=== PATIENT | female | born 1930 | race Caucasian/White ===

== ENCOUNTER 2016-08-12 07:01 | Inpatient (IN) | payer MEDICARE, OTHER ==
[~2016-08-12] VITALS: Ht 165.1 cm; Wt 96.6 kg
[~2016-08-12 07:01] MED LIST: AZOR1 TA1 PO; BENADRY1 PO; BENADRYL 50MG C50 MG OR; BENADRYL1 CRE EX; C 500 PO; CALCIUM + D600 MG OR; CHILD ASA LS81 MG PO; CLONIDINE0.1 MG OR; CORTISONE CREAM TOP; DIFLUCAN100 MG PO; FISH OIL1000 MG PO; FOLIC ACID1 MG PO; KEFLEX500 M1 PO; LANTUS100 MG/ML SC; LASIX 20 MG TAB20 MG PO; LISINOPRIL10 MG PO; LOSARTAN POT50 MG PO; MEDDOSEPAK OR; METHYLPRED4 MG PO; METOPROL TAR25 M1 PO; OATMEAL BATH; PRED FORTE1 % OP; QUETIAPINE FUMA25 MG PO; STOOL SOFTEN1 TAB PO; ZYRTEC10 MG PO
[2016-08-12] MEDS ORDERED: QUETIAPINE FUMA25 MG PO ×2 (07:38→07:40)
[2016-08-12] MEDS ORDERED: LANTUS100 UNIT/M SC (07:39)
[2016-08-12 07:54] LABS: HEMATOCRIT 38.4 % (37.0-47.0); HEMOGLOBIN 12.6 g/dl (12.0-16.0); IMMATURE GRANULOCYTES 1.2 % (0.0-1.0); MEAN CELL VOLUME 93.4 fL CALC (80.0-100.0); MEAN CORPUSCULAR HGB 30.7 pG CALC (26.0-32.0); MEAN CORPUSCULAR HGB CONC 32.8 g/L CALC (32.0-36.0); NEUT# 6.88 thou/uL (2.00-7.15); RED BLOOD COUNT 4.11 mill/uL (4.20-5.60); RED CELL DISTRI WIDTH 13.9 % (11.5-15.5)
[2016-08-12 08:23] LABS: BILIRUBIN, TOTAL 0.5 mg/dL (0.0-1.4); CALCIUM 9.3 mg/dL (8.4-10.2); CREATININE 1.1 mg/dL (0.5-1.0); POTASSIUM 4.9 mmol/l (3.5-5.1); TOTAL PROTEIN 7.6 g/dL (6.3-8.2)
[2016-08-12 09:56] LABS: URINE BILIRUBIN - DIPSTICK NEGATIVE (NEGATIVE); URINE BLOOD DIPSTICK NEGATIVE (NEGATIVE); URINE COLOR YELLOW; URINE GLUCOSE - DIPSTICK NEGATIVE (NEGATIVE); URINE KETONE NEGATIVE (NEGATIVE); URINE LEUK ESTERASE NEGATIVE (NEGATIVE); URINE NITRITE - DIPSTICK POSITIVE (Negative); URINE PROTEIN - DIPSTICK NEGATIVE (NEG-TRACE); URINE SPECIFIC GRAVITY 1.025; URINE UROBILINOGEN - DIPSTICK 0.2 E.U./dL (0.2)
[2016-08-12 09:57] LABS: URINE BACTERIA MODERATE hpf; URINE CLARITY SLIGHT CLOUDY; URINE EPITHELIAL CELLS FEW EPI/hpf (0-FEW)
[2016-08-12 11:19] VITALS: BP 142/59
[2016-08-12 15:22] VITALS: BP 131/46
[2016-08-12 19:25] VITALS: BP 120/50
[2016-08-12 23:25] VITALS: BP 119/50
[2016-08-13 04:30] VITALS: BP 122/66
[2016-08-13 06:03] LABS: HEMATOCRIT 35.7 % (37.0-47.0); HEMOGLOBIN 11.7 g/dl (12.0-16.0); IMMATURE GRANULOCYTES 0.6 % (0.0-1.0); MEAN CELL VOLUME 94.4 fL CALC (80.0-100.0); MEAN CORPUSCULAR HGB CONC 32.8 g/L CALC (32.0-36.0); NEUT# 4.23 thou/uL (2.00-7.15); RED BLOOD COUNT 3.78 mill/uL (4.20-5.60); RED CELL DISTRI WIDTH 13.9 % (11.5-15.5)
[2016-08-13 06:25] LABS: CALCIUM 8.9 mg/dL (8.4-10.2); CREATININE 1.1 mg/dL (0.5-1.0); POTASSIUM 4.1 mmol/l (3.5-5.1)
[2016-08-13 09:15] VITALS: BP 150/64
[2016-08-13 09:17] VITALS: BP 150/64
[2016-08-13] MEDS ORDERED: KEFLEX500 MG PO (14:44)
== END 2016-08-13 16:37 | disposition home health service (06) | DRG 71 ==
LOC: ENPENDDIS → ED 07:01 → ED-I 10:07 → ED 10:08 → MS2 10:09
PROVIDERS: Emergency Medicine; ADMIT Internal Medicine; ATTEND Internal Medicine
DX: G93.40 Encephalopathy, unspecified (principal); N39.0 Urinary tract infection, site not specified; E87.2 Acidosis; E11.22 Type 2 diabetes mellitus with diabetic chronic kidney disease; F03.90 Unspecified dementia, unspecified severity, without behavioral disturbance, psychotic disturbance, mood disturbance, and anxiety; I12.9 Hypertensive chronic kidney disease with stage 1 through stage 4 chronic kidney disease, or unspecified chronic kidney disease; N18.3 Chronic kidney disease, stage 3 (moderate); B19.20 Unspecified viral hepatitis C without hepatic coma; I25.10 Atherosclerotic heart disease of native coronary artery without angina pectoris; E78.5 Hyperlipidemia, unspecified; Z79.4 Long term (current) use of insulin; Z95.1 Presence of aortocoronary bypass graft; Z86.73 Personal history of transient ischemic attack (TIA), and cerebral infarction without residual deficits; Z85.038 Personal history of other malignant neoplasm of large intestine; Z95.0 Presence of cardiac pacemaker

== ENCOUNTER 2016-10-18 13:59 | Emergency (ER) | payer MEDICARE, OTHER ==
[~2016-10-18] VITALS: Ht 165.1 cm; Wt 81.8 kg
[~2016-10-18 13:59] MED LIST changes: +KEFLEX500 MG PO; +LANTUS100 UNIT/M SC
[2016-10-18 14:29] LABS: HEMATOCRIT 40.5 % (37.0-47.0); HEMOGLOBIN 13.2 g/dl (12.0-16.0); IMMATURE GRANULOCYTES 0.4 % (0.0-1.0); MEAN CELL VOLUME 94.6 fL CALC (80.0-100.0); MEAN CORPUSCULAR HGB 30.8 pG CALC (26.0-32.0); MEAN CORPUSCULAR HGB CONC 32.6 g/L CALC (32.0-36.0); NEUT# 5.19 thou/uL (2.00-7.15); RED BLOOD COUNT 4.28 mill/uL (4.20-5.60); RED CELL DISTRI WIDTH 13.8 % (11.5-15.5)
[2016-10-18 14:41] LABS: ALBUMIN 4.2 g/dL (3.2-5.0); BILIRUBIN, TOTAL 0.4 mg/dL (0.0-1.4); CALCIUM 9.2 mg/dL (8.4-10.2); CREATININE 1.4 mg/dL (0.5-1.0); POTASSIUM 4.9 mmol/l (3.5-5.1); TOTAL PROTEIN 7.5 g/dL (6.3-8.2)
[2016-10-18 14:51] LABS: PROTHROMBIN TIME 10.7 SECONDS (9.0-12.5)
[2016-10-18 16:50] LABS: URINE BILIRUBIN - DIPSTICK NEGATIVE (NEGATIVE); URINE BLOOD DIPSTICK NEGATIVE (NEGATIVE); URINE CLARITY CLEAR; URINE COLOR YELLOW; URINE GLUCOSE - DIPSTICK NEGATIVE (NEGATIVE); URINE KETONE NEGATIVE (NEGATIVE); URINE LEUK ESTERASE NEGATIVE (NEGATIVE); URINE NITRITE - DIPSTICK NEGATIVE (Negative); URINE PROTEIN - DIPSTICK NEGATIVE (NEG-TRACE); URINE SPECIFIC GRAVITY <=1.005; URINE UROBILINOGEN - DIPSTICK 0.2 E.U./dL (0.2)
[2016-10-18 17:03] VITALS: BP 154/70
== END 2016-10-18 17:04 | disposition short-term general hospital (02) ==
LOC: ED 13:59
PROVIDERS: Emergency Medicine
DX: H54.41 Blindness, right eye, normal vision left eye (principal); I10 Essential (primary) hypertension; E11.9 Type 2 diabetes mellitus without complications; R94.31 Abnormal electrocardiogram [ECG] [EKG]; Z95.1 Presence of aortocoronary bypass graft; Z86.73 Personal history of transient ischemic attack (TIA), and cerebral infarction without residual deficits; Z85.038 Personal history of other malignant neoplasm of large intestine; Z95.0 Presence of cardiac pacemaker

== ENCOUNTER 2017-06-20 13:25 | Inpatient (IN) | payer MEDICARE, OTHER ==
[~2017-06-20] VITALS: Ht 165.1 cm; Wt 68.1 kg
[2017-06-20 15:19] LABS: INFLUENZA A POSITIVE (NONE DETECT); INFLUENZA B NONE DETECTED (NONE DETECT)
[2017-06-20 15:21] LABS: HEMATOCRIT 40.8 % (37.0-47.0); HEMOGLOBIN 13.5 g/dl (12.0-16.0); IMMATURE GRANULOCYTES 0.5 % (0.0-1.0); MEAN CELL VOLUME 93.8 fL CALC (80.0-100.0); MEAN CORPUSCULAR HGB CONC 33.1 g/L CALC (32.0-36.0); NEUT# 9.1 thou/uL (2.00-7.15); RED BLOOD COUNT 4.35 mill/uL (4.20-5.60); RED CELL DISTRI WIDTH 13.9 % (11.5-15.5)
[2017-06-20 15:26] LABS: BILIRUBIN, TOTAL 0.6 mg/dL (0.0-1.4); CREATININE 1.3 mg/dL (0.5-1.0)
[2017-06-20] MEDS ORDERED: LEVEMIR FL100 UNIT/M SC (15:27)
[2017-06-20 15:37] LABS: POTASSIUM 5.3 mmol/l (3.5-5.1)
[2017-06-20 18:30] VITALS: BP 119/65
[2017-06-21] VITALS (7 sets, daily range): BP systolic 110–152; BP diastolic 54–76
[2017-06-22 00:13] VITALS: BP 110/51
[2017-06-22 04:29] VITALS: BP 117/55
[2017-06-22 05:45] LABS: CREATININE 1.2 mg/dL (0.5-1.0)
[2017-06-22 06:09] LABS: IMMATURE GRANULOCYTES 0.5 % (0.0-1.0); MEAN CELL VOLUME 93.6 fL CALC (80.0-100.0); MEAN CORPUSCULAR HGB 31.6 pG CALC (26.0-32.0); MEAN CORPUSCULAR HGB CONC 33.7 g/L CALC (32.0-36.0); NEUT# 12.5 thou/uL (2.00-7.15); RED BLOOD COUNT 3.61 mill/uL (4.20-5.60); RED CELL DISTRI WIDTH 13.6 % (11.5-15.5)
[2017-06-22 06:11] LABS: HEMATOCRIT 33.8 % (37.0-47.0); HEMOGLOBIN 11.4 g/dl (12.0-16.0)
[2017-06-22 07:45] VITALS: BP 111/49
[2017-06-22 11:44] VITALS: BP 126/51
[2017-06-22 14:34] VITALS: BP 133/70
[2017-06-22 19:28] VITALS: BP 110/57
[2017-06-22 21:06] LABS: URINE BILIRUBIN - DIPSTICK NEGATIVE (NEGATIVE); URINE BLOOD DIPSTICK NEGATIVE (NEGATIVE); URINE COLOR YELLOW; URINE GLUCOSE - DIPSTICK >=1000 mg/dL (NEGATIVE); URINE KETONE NEGATIVE (NEGATIVE); URINE LEUK ESTERASE NEGATIVE (NEGATIVE); URINE NITRITE - DIPSTICK NEGATIVE (Negative); URINE PROTEIN - DIPSTICK NEGATIVE (NEG-TRACE); URINE SPECIFIC GRAVITY 1.015; URINE UROBILINOGEN - DIPSTICK 0.2 E.U./dL (0.2)
[2017-06-22 21:07] LABS: URINE CLARITY CLEAR
[2017-06-23 00:41] VITALS: BP 116/65
[2017-06-23 05:24] LABS: HEMATOCRIT 35.1 % (37.0-47.0); HEMOGLOBIN 11.6 g/dl (12.0-16.0); MEAN CELL VOLUME 93.1 fL CALC (80.0-100.0); MEAN CORPUSCULAR HGB 30.8 pG CALC (26.0-32.0); RED BLOOD COUNT 3.77 mill/uL (4.20-5.60); RED CELL DISTRI WIDTH 13.8 % (11.5-15.5)
[2017-06-23 05:31] VITALS: BP 158/74
[2017-06-23 05:58] LABS: ANION GAP 16 (6-22 (CALC)); BUN 36 mg/dL (8-23); BUN/CREATININE RATIO 37 (12-20 (CALC)); CARBON DIOXIDE 20 mmol/l (22-30); CHLORIDE 103 mmol/l (95-108); GFR 52 ML/MIN (>=60 (CALC)); GFR FOR AFR.AMER. > 60 ML/MIN (>=60 (CALC)); POTASSIUM 4.6 mmol/l (3.5-5.1); SODIUM 135 mmol/l (137-146)
[2017-06-23 07:55] VITALS: BP 155/68
[2017-06-23 11:00] VITALS: BP 115/55
[2017-06-23 15:30] VITALS: BP 121/52
[2017-06-23 19:00] VITALS: BP 140/60
[2017-06-24 00:38] VITALS: BP 143/65
[2017-06-24 04:45] VITALS: BP 163/73
[2017-06-24 05:33] LABS: HEMATOCRIT 35.7 % (37.0-47.0); HEMOGLOBIN 11.9 g/dl (12.0-16.0); MEAN CELL VOLUME 93.5 fL CALC (80.0-100.0); MEAN CORPUSCULAR HGB 31.2 pG CALC (26.0-32.0); MEAN CORPUSCULAR HGB CONC 33.3 g/L CALC (32.0-36.0); RED BLOOD COUNT 3.82 mill/uL (4.20-5.60); RED CELL DISTRI WIDTH 13.8 % (11.5-15.5)
[2017-06-24 05:43] LABS: CREATININE 1.1 mg/dL (0.5-1.0); MAGNESIUM 2.2 mg/dL (1.6-2.3); POTASSIUM 4.7 mmol/l (3.5-5.1)
[2017-06-24 07:45] VITALS: BP 151/62
[2017-06-24 09:02] VITALS: BP 151/62
[2017-06-24] MEDS ORDERED: ZITHROMAX250 MG PO (12:41)
[2017-06-24] MEDS ORDERED: VANTIN200 M1 PO (12:41)
[2017-06-24] MEDS ORDERED: GUAIFENESI100 MG/51 PO (12:41)
[2017-06-24] MEDS ORDERED: ELIQUIS2.5 MG PO (12:41)
[2017-06-24] MEDS ORDERED: TAMIFLU30 MG PO (12:41)
== END 2017-06-24 13:39 | DRG 194 ==
LOC: ED 13:25 → ED-I 17:20 → ED 17:51 → MS2 17:52
PROVIDERS: Family Medicine; Nurse Practitioner Family; ADMIT Internal Medicine; ATTEND Internal Medicine
DX: J10.00 Influenza due to other identified influenza virus with unspecified type of pneumonia (principal); N17.9 Acute kidney failure, unspecified; I47.2 Ventricular tachycardia; E11.22 Type 2 diabetes mellitus with diabetic chronic kidney disease; E87.5 Hyperkalemia; I48.0 Paroxysmal atrial fibrillation; N18.3 Chronic kidney disease, stage 3 (moderate); I13.10 Hypertensive heart and chronic kidney disease without heart failure, with stage 1 through stage 4 chronic kidney disease, or unspecified chronic kidney disease; E78.5 Hyperlipidemia, unspecified; I25.10 Atherosclerotic heart disease of native coronary artery without angina pectoris; B19.20 Unspecified viral hepatitis C without hepatic coma; F03.90 Unspecified dementia, unspecified severity, without behavioral disturbance, psychotic disturbance, mood disturbance, and anxiety; Z86.73 Personal history of transient ischemic attack (TIA), and cerebral infarction without residual deficits; Z95.0 Presence of cardiac pacemaker; Z85.038 Personal history of other malignant neoplasm of large intestine; Z95.1 Presence of aortocoronary bypass graft; Z92.21 Personal history of antineoplastic chemotherapy
CPT/HCPCS: G0378

== ENCOUNTER 2017-10-31 21:32 | Inpatient (IN) | payer MEDICARE ==
[~2017-10-31] VITALS: Ht 165.1 cm; Wt 67.1 kg
[~2017-10-31 21:32] MED LIST changes: +ELIQUIS2.5 MG PO; +GUAIFENESI100 MG/51 PO; +LEVEMIR FL100 UNIT/M SC; +STOOL SOFTE1 PO; -STOOL SOFTEN1 TAB PO; +TAMIFLU30 MG PO; +VANTIN200 M1 PO; +ZITHROMAX250 MG PO
--- NOTE | 2017-10-31 21:35 | NUR ---
PATIENT TO ROOM 15 VIA EMS STRETCHER. PATIENT'S EMS IV REMOVED IN TRANSFER FROM EMS STRETCHER TO ER STRETCHER. DRESSING APPLIED. TRIAGE COMPLETED AT BEDSIDE. PATIENT PLACED ON MONITOR. MD AT BEDSIDE FOR EVAL. PALPABLE PULSE TO RLE. APPEARS SHORTENED AND EXTERNALLY ROTATED, PAIN WITH SLIGHTEST PALPATION.
--- NOTE | 2017-10-31 21:50 | NUR ---
EMS STATES PT WAS FOUND ON THE GROUND OF THE ASSISTED LIVING FACILITY. PT STATES THAT SHE TRIPPED AND FELL. PT IS AOX2 TO SELF AND EVENT. FACILITY STATES PT IS MORE OUT OF IT THEN USUAL. PT HAS PAIN TO THE RIGHT HIP AND THIG AREA. PMS NOTED IN ROOT FOOT. PT DENIES ANY HEAD PAIN, C/P, SOB.
[2017-10-31 22:04] LABS: HEMATOCRIT 38.1 % (37.0-47.0); HEMOGLOBIN 12.3 g/dl (12.0-16.0); IMMATURE GRANULOCYTES 0.8 % (0.0-1.0); MEAN CORPUSCULAR HGB 28.4 pG CALC (26.0-32.0); MEAN CORPUSCULAR HGB CONC 32.3 g/L CALC (32.0-36.0); NEUT# 14.9 thou/uL (2.00-7.15); RED BLOOD COUNT 4.33 mill/uL (4.20-5.60); RED CELL DISTRI WIDTH 14.4 % (11.5-15.5)
[2017-10-31 22:21] LABS: ALBUMIN 3.3 g/dL (3.2-5.0); BILIRUBIN, TOTAL 0.6 mg/dL (0.0-1.4); CREATININE 1.4 mg/dL (0.5-1.0); POTASSIUM 4.7 mmol/l (3.5-5.1); TOTAL PROTEIN 6.6 g/dL (6.3-8.2)
[2017-10-31 22:22] LABS: ACT PARTIAL THROMBO TIME 31.7 SECONDS (20.0-32.5); INTERNATIONAL NORMALIZED RATIO 1.2 RATIO (0.7-1.3)
--- NOTE | 2017-10-31 22:31 | NUR ---
MEDICATED PT FOR R HIP PAIN.
--- NOTE | 2017-10-31 22:53 | NUR ---
XRAY AT BEDSIDE.
[2017-11-01] VITALS (10 sets, daily range): BP systolic 74–126; BP diastolic 44–83
--- NOTE | 2017-11-01 00:25 | NUR ---
PT AWARE OF R FEMUR FX. PROVIDED REORIENTAION TO PLACE.
--- NOTE | 2017-11-01 01:07 | NUR ---
PT MEDICATED FOR R HIP PAIN.
[2017-11-01 02:03] LABS: URINE BILIRUBIN - DIPSTICK NEGATIVE (NEGATIVE); URINE BLOOD DIPSTICK NEGATIVE (NEGATIVE); URINE COLOR YELLOW; URINE GLUCOSE - DIPSTICK NEGATIVE (NEGATIVE); URINE KETONE TRACE mg/dL (NEGATIVE); URINE LEUK ESTERASE NEGATIVE (NEGATIVE); URINE NITRITE - DIPSTICK NEGATIVE (Negative); URINE PH 5.5 (4.5-8.0); URINE PROTEIN - DIPSTICK TRACE mg/dL (NEG-TRACE); URINE SPECIFIC GRAVITY >=1.030
[2017-11-01 02:04] LABS: URINE CLARITY CLOUDY
[2017-11-01 02:08] LABS: URINE AMORPH SEDIMENT MODERATE hpf (NONE-FEW); URINE BACTERIA FEW hpf; URINE COARSE GRANULAR CAST FEW lpf; URINE FINE GRAN CAST FEW lpf; URINE MUCUS FEW hpf (NONE-FEW); URINE RBC 0-2 RBC/hpf (0-5); URINE SQUAMOUS EPITHELIAL CELL MODERATE EPI/hpf (0-FEW); URINE WBC 0-2 WBC/hpf (0-5)
--- NOTE | 2017-11-01 02:10 | NUR ---
PT INFORMED OF ADMISSION. PROVIDED REORIENTATION TO PLACE.
--- NOTE | 2017-11-01 02:58 | NUR ---
REPORT TO [facility]ELDMAN [facility]/SURG
--- NOTE | 2017-11-01 03:12 | NUR ---
PT COND STABLE, PEDAL PULSE TO R FOOT POSITIVE. OUTWARD ROTATION NOTED. PT TO RM 281 VIA STRETCHER WITH RN ON TELE. PT ASSISTED TO BED VIA SLIDE BOARD.
--- NOTE | 2017-11-01 03:25 | NUR ---
PT.ARRIVED TO THE FLOOR VIA STRETCHER ACCOMPANIED BY ED NURSE AND LAUNDRY ATTENDANT. PT.TRANSFERED TO BED FROM STRETCHER VIA 5 PEOPLE ASSIST. PT.APPEARS TO BE IN QUITE A BIT OF PAIN UPON TRANSFER. PT.WAS SOILED OF STOOL AND REMAINS OF A SOILED BRIEF WERE FOUND UNDER PT. MIJARES CATHETER HAD BEEN PLACED, LEG STRAP PLACED, APPEARS PATENT AND DRAINING. IV FLUIDS RUNNING THROUGH ACCESSED UPPER RSC PORT. V/S ASSESSED, HR131 BP126/83,0286 RA. PT.PLACED ON AND SATS INCREASED TO 100% ON .
--- NOTE | 2017-11-01 04:30 | NUR ---
PT.IS RESTING COMFORTABLY, AWOKE TO MY VOICE. LOC TO SELF ONLY. PT.ASSESSED,LUNG SOUNDS ARE CLEAR/DIM, SKIN IS INTACT, ABD.SOFT/NON-TENDER. IV FLUIDS ARE RUNNING NS@125/SITE APPEARS HEALTHY. LIGHTS DOWN LOW, BED IN LOWEST POSITIION AND BED ALARM ON.
--- NOTE | 2017-11-01 05:39 | NUR ---
PT.AWOKE TO MY ENTERING ROOM. SHE WAS DISORIENTED TO SITUATION,BUT WAS CALM. I TOOK HER BY THE HAND AND EXPLAINED HER SITUATION AND LOCATION, SHE SEEMED COMFORTED. SHE STATED THAT HER LEG FELT A LITTLE "CRAMPY," WHEN ASKED IF SHE WAS HAVING PAIN SHE SHOOK HER HEAD NO. DENIES ANY OTHER NEEDS AT THIS TIME. REORIENTED TO CALL LIGHT, BED ALARM ON.
--- NOTE | 2017-11-01 07:00 | NUR ---
BEDSIDE REPORT RECEIVED BY MIKEY. PT IS SLEEPING IN BED WITH NO S/S OF DISTRESS NOTED. BED ALARM IN PLACE FOR SAFETY.
--- NOTE | 2017-11-01 08:00 | NUR ---
ASSESSMENT DONE. TELE IN PLACE. LUNG SOUND CLEAR/ DIMINISHED. PT IS A&O X2 ONLY TO SELF AND DATE OF . RU PORT THAT APPEARS HEALTHY. FOELY IN PLACE WITH YELLOW URINE. BED ALARM IN PLACE.
--- NOTE | 2017-11-01 09:30 | NUR ---
Andres BLAKE CUT FILER SPOKE TO DR. COMBS AND SETUP UP OR TEAM FOR SURGERY AT 1500 TODAY.
--- NOTE | 2017-11-01 12:00 | NUR ---
PT IS SLEEPING IN BED WITH NO S/S OF DISTRESS NOTED. MIJARES IS PATENT WITH YELLOW URINE. BED ALARM IN PLACE.
--- NOTE | 2017-11-01 14:16 | NUR ---
PT SON CAME IN TO SIGN CONSENT FOR SURGERY. EXPLAINED THE CONSENT TO SON BUT HE REFUSED FOR ME TO GO IN TO MORE DETAILS. SON STATED IT WAS FINE AND SIGN PT SON REFUSED TO GO INTO PT ROOM AT THIS TIME.
--- NOTE | 2017-11-01 14:31 | NUR ---
PT GOING TO OR VIA BED BY MARIPOSA FROM OR.
--- NOTE | 2017-11-01 18:01 | NUR ---
KEVIN DARNELL CALLED FROM ICU THAT PT IS BEING TRANFER FROM OR TO ICU.
--- NOTE | 2017-11-01 18:25 | NUR ---
female pt received from OR via bed in stable condition; easily aroused to verbal stimuli; alert to person and city; denies pain; report received from OR Sasha Lakhani RN; monitoring attachments explained and applied; afib 120s on monitor; bp 74/44; fluid bolus infusing; o2 per nc; iv patent; gusman to gravity;
--- NOTE | 2017-11-01 18:40 | NUR ---
report to Ute Harley, RN
--- NOTE | 2017-11-01 19:00 | NUR ---
PT RESTING IN BED WITH EYES CLOSED. PT IS ALERT AND ORIENTED X3. PERRLA. SHIFT ASSESSMENT COMPLETED AT THIS TIME. PORT PATENET WITH IV BOLUS INFUSING. MANUAL BP OF 102/50. MIJARES DRAINING CLEAR YELLOW URINE. PT ORIENTED TO CALL LIGHT SYSTEM. PT VERBALIZED UNDERSTANDING. PT DENIES PAIN. CALL LIGHT IN REACH. WILL CONTINUE TO MONITOR
--- NOTE | 2017-11-01 19:10 | NUR ---
PHONED ARTHUR MARIE NURSING BRUSHER HAND FOR BED ASSIGNMENT. NURSING BRUSHER HAND REPORTED THAT SHE WAS NOT AWARE OF TRANSFER. WILL NOTIFY DR HANLEY
--- NOTE | 2017-11-01 19:15 | NUR ---
CALLED DR COMBS ANSWERING SERVICE [phone] TO NOTIFY THAT SURGERY WAS NOT SET UP AT [facility] AND THAT WE ARE NOT ABLE TO DO BUCKS TRACTION. AWAITING CALL BACK FROM
--- NOTE | 2017-11-01 19:20 | NUR ---
MANUAL BP 98/52
--- NOTE | 2017-11-01 20:36 | NUR ---
PHONED DR COMBS ANSWERING SERVICE [phone]. WILL CONTINUE TO AWAIT TO HEAR FROM DR COMBS.
--- NOTE | 2017-11-01 20:52 | NUR ---
MANUAL BP 85/50
--- NOTE | 2017-11-01 21:20 | NUR ---
LAYO FROM DR BOOKER OFFICE PHONED. 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 EXPLAINED THAT WE DO NOT HAVE THE BUCKS TRACTION TO APPLY SHE STATED THAT WAS OK. I QUESTIONED ABOUT TRANSFER TO [facility] AND EXPLAINED THAT SHE WAS NOT ON THE OR SCHEDULE SHE STATED THAT WOULD ALL BE TAKEN CARE OF IN THE AM.
--- NOTE | 2017-11-01 21:46 | NUR ---
MANUAL BP 90/58
--- NOTE | 2017-11-01 22:30 | NUR ---
BLADDER SCANNED 0ML
--- NOTE | 2017-11-01 22:40 | NUR ---
MESSAGE LEFT FOR DR MUÑOZ IN REFERENCE TO URINE OUTPUT.
--- NOTE | 2017-11-01 23:00 | NUR ---
PHONED DR MUÑOZ IN REFERENCE TO DECREASED URINE OUTPUT POST 3 LITER BOLUS IN PACU. ORDERS RECEIVED. WILL CONTINUE TO MONITOR
--- NOTE | 2017-11-01 23:05 | NUR ---
BOLUS OF LR INFUSING.
--- NOTE | 2017-11-01 23:54 | NUR ---
MANUAL BP 92/50
[2017-11-02] VITALS (13 sets, daily range): BP systolic 75–108; BP diastolic 45–63
--- NOTE | 2017-11-02 | NUR ---
PT RESTING IN BED WITH EYES CLOSED. RESP ARE EVEN AND UNLABORED. REMAINS AFIB ON MONITOR. CALL LIGHT IN REACH. WILL CONTINUE TO MONIOTR
--- NOTE | 2017-11-02 01:50 | NUR ---
PT RESTIGN IN BED WITH EYES CLOSED. RESP ARE EVEN AND UNLABORED. NO DISTRESS NOTED. PORT PATENT. CALL LIGHT IN REACH WILL CONTINUE TO MONITOR
--- NOTE | 2017-11-02 04:00 | NUR ---
PT AWAKE IN BED. PT STATES THAT SHE IS HAVING PAIN. BP 95/55. WILL MEDICATE WITH DILAUDID AND ZOFRAN DUE TO NPO STATUS. REMAINS AFIB ON MONITOR. PORT PATENT. CALL LIGHT IN REACH. WILL CONTINUE TO MONITOR
[2017-11-02 04:39] LABS: IMMATURE GRANULOCYTES 0.6 % (0.0-1.0); MEAN CELL VOLUME 92.5 fL CALC (80.0-100.0); MEAN CORPUSCULAR HGB 28.5 pG CALC (26.0-32.0); MEAN CORPUSCULAR HGB CONC 30.8 g/L CALC (32.0-36.0); NEUT# 8.25 thou/uL (2.00-7.15); RED BLOOD COUNT 3.19 mill/uL (4.20-5.60); RED CELL DISTRI WIDTH 14.5 % (11.5-15.5)
[2017-11-02 04:40] LABS: HEMATOCRIT 29.5 % (37.0-47.0); HEMOGLOBIN 9.1 g/dl (12.0-16.0)
[2017-11-02 04:53] LABS: ANION GAP 11 (6-22 (CALC)); BUN 24 mg/dL (8-23); BUN/CREATININE RATIO 27 (12-20 (CALC)); CARBON DIOXIDE 21 mmol/l (22-30); CHLORIDE 107 mmol/l (95-108); CREATININE 0.9 mg/dL (0.5-1.0); GFR 59 ML/MIN (>=60 (CALC)); GFR FOR AFR.AMER. > 60 ML/MIN (>=60 (CALC)); POTASSIUM 4.9 mmol/l (3.5-5.1); SODIUM 134 mmol/l (137-146)
--- NOTE | 2017-11-02 06:25 | NUR ---
PT RESTING IN BED WITH EYES CLOSED. RESP ARE EVEN AND UNLABORED. NO DISTRESS NOTED. CALL LIGHT IN REACH. WILL CONTINUE TO MONITOR
--- NOTE | 2017-11-02 07:05 | NUR ---
pt noted resting/snoring with eyes closed; no distress noted; easily arousable to verbal stimuli; assessment completed at this time; pt alert to self only; denies pain; no n/v noted at this time; resp even and unlabored; lungs clear bilat; skin color wnl; o2 per nc at 2L; coughing, deep breathing encouraged; hr reg; afib/ pvc on monitor sustained at 130s; doppler pedal pulses; trace edema noted to right ankle/foot; scd intact to lle; abd soft/distended with bs present; no bm noted per speech writer; gusman to gravity draining clear yellow urine; cath ospina intact; right chest port accessed with LR infusing at 150cc/hr; no redness or edema noted at site; ice pack applied to right hip; repositioned; manual bp 78/50, MD to be notified; NPO status maintained; call light within reach; will continue to monitor
--- NOTE | 2017-11-02 07:30 | NUR ---
Dr Graham called this mortgage or loan underwriter; report given including manaul bp of 78/50, sustained afib 130s; orders received for fluids bolus; [facility] to be called in regards to transfer with Dr Lynn accepting; will continue to monitor
--- NOTE | 2017-11-02 07:39 | NUR ---
BP 75/52, AFIB 130 ON MONITOR; FLUID BOLUS INITIATED PER ORDERS; WILL CONTINUE TO MONITOR CLOSELY
--- NOTE | 2017-11-02 07:56 | NUR ---
[facility] called per advertising copy writer; spoke with nursing supervisor cellars Otilia; information provided for transfer; facesheet to be faxed; will notify Dr Lynn to inform [facility] of pt acceptance as per Otilia's request
--- NOTE | 2017-11-02 08:06 | NUR ---
received called from Marcos with Dr Horne's office; orders received to initiate transfer to [facility] under services of Dr Lynn; surgery to be done at approx 1700; chief writer informed Marcos transfer has been initiated; will continue to monitor
--- NOTE | 2017-11-02 08:13 | NUR ---
resting in bed with closed; no distress noted; resp even and unlabored; iv patent; bolus continues; sbp 90; afib 128 on monitor; gusman to gravity; NPO maintained; scd intact to LLE; call light within reach; will continue to monitor
--- NOTE | 2017-11-02 08:30 | NUR ---
Dr Graham at bedside to assess pt and discuss plan of care
--- NOTE | 2017-11-02 08:41 | NUR ---
fluid bolus completed; no distress noted; pt easily aroused; bp 98/45 hr 128
--- NOTE | 2017-11-02 08:57 | NUR ---
received called from [facility] kiln head house operator Yoli; bed assignment received; pt assigned room 306; gag writer questioned bed type; Yoli states "tele bed"; VS and HR reviewed with nursing belt and link shop supervisor; gag writer to notified Dr Graham to update Dr Lynn on condition; will continue to monitor
--- NOTE | 2017-11-02 09:08 | NUR ---
called Dr Graham in regards to TELE bed assigned at [facility]; reviewed with MD persistent hypotension with current bp 84/53, afib 128 with possible need for pressors; Dr Graham to call Dr Lynn to discuss VS/ bed assignment; will continue to monitor
--- NOTE | 2017-11-02 09:26 | NUR ---
called received from Kaylee Baron; updated on condition and pending transfer;
--- NOTE | 2017-11-02 09:33 | NUR ---
com writer called VIJ[facility] Kent nursing powdered metal supervisor; updated in plan of care; Dr Lynn to call VIJAY with request for possible ICU bed; awaiting bed assignment
--- NOTE | 2017-11-02 09:54 | NUR ---
awake; denies pain; offers no complaints; repositioned for comfort; limited movement/repositioning due to pain with movement; afib 114 on monitor; bp improving; gusman to gravity; o2 per nc; iv patent; right leg rotated externally; ice pack to right hip; call light within reach; will continue to monitor
--- NOTE | 2017-11-02 11:10 | NUR ---
telegraphic typewriter operator called [facility] Yoli in regards to bed assignment; Yoli admits to waiting to hear from Dr Lynn for approp bed assignment
--- NOTE | 2017-11-02 11:30 | NUR ---
received call from VIJAY Kent; ICU 253 bed assignment received; report to be called at [phone];
--- NOTE | 2017-11-02 11:33 | NUR ---
[facility] transport Roman called per handbook writer; transfer information provided; ETA 20 minutes; will continue to monitor
--- NOTE | 2017-11-02 11:35 | NUR ---
[facility]A called to [facility] as per request
--- NOTE | 2017-11-02 11:38 | NUR ---
pt noted/heard moaning out loudly; in to assess pt; pt with complaints of pain to right hip; repositioned; facial grimaces noted; medicated with dilaudid as per orders; will continue to monitor
--- NOTE | 2017-11-02 12:07 | NUR ---
pt discharged with [facility] transport; pt belongings/night gown sent with pt; iv fluids infusing; o2 per nc; afib on monitor; sbp 98 on discharged
--- NOTE | 2017-11-02 12:08 | NUR ---
Kaylee Baron called as per request; informed pt has been transferred
--- NOTE | 2017-11-02 12:10 | NUR ---
report called to [facility] ICU Keke Stinson RN
== END 2017-11-02 12:07 | DRG 536 ==
LOC: ED 21:32 → ED-I 11-01 01:20 → ED 11-01 02:14 → ICU 11-01 02:15 → MS2 11-01 02:15 → ICU 11-01 17:55
PROVIDERS: Family Medicine; Nurse Practitioner; ADMIT Internal Medicine; ATTEND Internal Medicine
PROC: 0T9B70Z Drainage of Bladder with Drainage Device, Via Natural or Artificial Opening (ICD-10-PCS; principal; 2017-11-01)
DX: S72.21XA Displaced subtrochanteric fracture of right femur, initial encounter for closed fracture (principal); I12.9 Hypertensive chronic kidney disease with stage 1 through stage 4 chronic kidney disease, or unspecified chronic kidney disease; E11.22 Type 2 diabetes mellitus with diabetic chronic kidney disease; N18.3 Chronic kidney disease, stage 3 (moderate); F03.90 Unspecified dementia, unspecified severity, without behavioral disturbance, psychotic disturbance, mood disturbance, and anxiety; I25.10 Atherosclerotic heart disease of native coronary artery without angina pectoris; I48.91 Unspecified atrial fibrillation; I95.9 Hypotension, unspecified; R00.0 Tachycardia, unspecified; B19.20 Unspecified viral hepatitis C without hepatic coma; W19.XXXA Unspecified fall, initial encounter; Y93.9 Activity, unspecified; Y92.099 Unspecified place in other non-institutional residence as the place of occurrence of the external cause; Z53.09 Procedure and treatment not carried out because of other contraindication; Z79.82 Long term (current) use of aspirin; Z85.038 Personal history of other malignant neoplasm of large intestine; Z86.73 Personal history of transient ischemic attack (TIA), and cerebral infarction without residual deficits; Z95.1 Presence of aortocoronary bypass graft; Z95.0 Presence of cardiac pacemaker; Z79.01 Long term (current) use of anticoagulants
CPT/HCPCS: J1160